=== PATIENT | male | born 1980 | race Caucasian/White ===

== ENCOUNTER 2016-11-22 20:49 | Emergency (ER) | payer BC, OTHER ==
[~2016-11-22] VITALS: Ht 175.3 cm; Wt 68.0 kg
[2016-11-22 22:04] VITALS: BP 114/85
== END 2016-11-22 22:06 | disposition home or self-care (01) ==
LOC: ER 20:49
DX: S61.212A Laceration without foreign body of right middle finger without damage to nail, initial encounter (principal); F10.99 Alcohol use, unspecified with unspecified alcohol-induced disorder; Z23 Encounter for immunization; W23.0XXA Caught, crushed, jammed, or pinched between moving objects, initial encounter; Y93.89 Activity, other specified; Y92.89 Other specified places as the place of occurrence of the external cause; Y99.8 Other external cause status